=== PATIENT | female | born 1950 | race Two or more races ===

== ENCOUNTER → 2021-03-10 | Outpatient (CLI) | payer OTHER ==
[~2021-03-10] MED LIST: DOXAZOSIN MESYLA2 MG PO; IRBESARTAN150 MG PO; LEVO-T50 MCG PO; LORAZEPAM2 MG PO; MACROBID 100 M100 MG PO; ULTRACET PO
== END | disposition home or self-care (01) ==
LOC: LAB 09:36
PROVIDERS: ATTEND Obstetrics & Gynecology Gynecology
DX: Z20.828 Contact with and (suspected) exposure to other viral communicable diseases (principal)

== ENCOUNTER 2021-03-16 05:56 | Day surgery (SDC) | payer OTHER ==
[~2021-03-16 05:56] MED LIST changes: -MACROBID 100 M100 MG PO; -ULTRACET PO
[2021-03-16] MEDS ORDERED: MACROBID 100 M100 MG PO ×2 (12:01)
[2021-03-16] MEDS ORDERED: ULTRACET PO ×2 (12:01)
== END 2021-03-16 16:55 | disposition home or self-care (01) ==
LOC: CIR.AMB 05:56
PROVIDERS: ATTEND Obstetrics & Gynecology Gynecology
DX: N30.11 Interstitial cystitis (chronic) with hematuria (principal); Z20.822 Contact with and (suspected) exposure to COVID-19